=== PATIENT | male | born 1980 | race American Indian/Alaskan Native ===

== ENCOUNTER 2017-10-21 22:27 | Emergency (ER) | payer MEDICAID ==
[2017-10-22] MEDS ORDERED: Sodium Chloride 0.9% 1,000 ML IV ONE (00:12)
--- NOTE | 2017-10-22 00:29 | EDM.PDOC ---
ED HPI GENERAL MEDICAL PROBLEM - General Chief Complaint: Gastrointestinal Problem Stated Complaint: HEADACHE AND STOMACH PAIN [id number] Time Seen by Provider: 10/22/17 00:25 Source of Information: Reports: Patient History Limitations: Reports: No Limitations - History of Present Illness INITIAL COMMENTS - FREE TEXT/NARRATIVE: onset diarrhoea and headache today. did eat sandwich earlier but only a small bit. no N/V. Treatments CORPORATE ASSOCIATE: Reports: NSAIDS Frontal Headache Pain Score (Numeric/FACES): 6 - Related Data Allergies Allergy/AdvReac Type Severity Reaction Status Date / Time No Known Allergies Allergy Verified 10/22/17 00:09 Home Meds: Home Meds . [No Known Home Meds] 11/01/13 [History] Past Medical History - Past Health History Medical/Surgical History: Denies Medical/Surgical History - Past Surgical History Other Musculoskeletal Surgeries/Procedures:: right forearm plate inserted 2013 Social & Family History - Tobacco Use Smoking Status *Q: Never Smoker Second Hand Smoke Exposure: No - Caffeine Use Caffeine Use: Reports: Coffee, Energy Drinks, Soda, Tea - Recreational Drug Use Recreational Drug Use: Yes Recreational Drug Type: Reports: Marijuana/Hashish Recreational Drug Use Frequency: Weekly ED ROS GENERAL - Review of Systems Review Of Systems: ROS reveals no pertinent complaints other than HPI. ED EXAM, GI/ABD - Physical Exam Exam: See Below Exam Limited By: No Limitations General Appearance: Alert, WD/WN, Mild Distress, Other (discomfort) Eyes: Bilateral: Normal Appearance (pupils ER @ 4mm) Ears: Hearing Grossly Normal Throat/Mouth: Normal Voice, No Airway Compromise Head: Atraumatic Neck: Non-Tender, Full Range of Motion Respiratory/Chest: No Respiratory Distress Cardiovascular: Regular Rate, Rhythm GI/Abdominal Exam: Soft, Non-Tender, Other (BS hyper). No: Distended, Guarding , Rigid, Rebound Neurological: Alert, Oriented, Normal Cognition, Normal Gait, No Motor/Sensory Deficits Psychiatric: Normal Affect, Normal Mood Skin Exam: Warm, Dry, Normal Color Lymphatic: No Adenopathy Course - Vital Signs Last Recorded V/S: Last Vital Signs Temp 36.8 C 10/21/17 23:59 Pulse 102 H 10/21/17 23:59 Resp 18 10/21/17 23:59 BP 123/98 H 10/21/17 23:59 Pulse Ox 99 10/21/17 23:59 - Orders/Labs/Meds Labs: Laboratory Tests 10/22/17 10/22/17 10/22/17 Range/Units 00:20 00:20 00:20 WBC 6.4 (5.0-10.0) 10^3/uL RBC 5.19 (4.6-6.2) 10^6/uL Hgb 15.9 (14.0-18.0) g/dL Hct 46.6 (40.0-54.0) % MCV 89.8 (80-100) fL MCH 30.6 (27.0-34.0) pg MCHC 34.1 (33.0-35.0) g/dL Plt Count 166 (150-450) 10^3/uL Neut % (Auto) 67.4 (42.2-75.2) % Lymph % (Auto) 18.6 L (20.5-50.1) % Martin % (Auto) 11.3 H (2-8) % Eos % (Auto) 2.5 (1.0-3.0) % Baso % (Auto) 0.2 (0.0-1.0) % Sodium 138 (135-145) mmol/L Potassium 3.7 (3.6-5.0) mmol/L Chloride 104 (101-111) mmol/L Carbon Dioxide 26.0 (21.0-31.0) mmol/L Anion Gap 11.7 BUN 13 (7-18) mg/dL Creatinine 0.9 (0.6-1.3) mg/dL Est Cr Clr Drug Dosing 118.53 mL/min Estimated GFR (MDRD) > 60 BUN/Creatinine Ratio 14.44 Glucose 115 H (74-105) mg/dL Lactic Acid 0.7 (0.5-2.2) mmol/L Calcium 8.9 (8.4-10.2) mg/dl Total Bilirubin 0.4 (0.2-1.0) mg/dL AST 36 (10-42) IU/L ALT 43 (10-60) IU/L Alkaline Phosphatase 75 (42-121) IU/L Total Protein 7.8 (6.7-8.2) g/dl Albumin 4.0 (3.2-5.5) g/dl Globulin 3.8 Albumin/Globulin Ratio 1.05 Meds: Medications Discontinued Medications Generic Name Dose Route Start Last Admin Trade Name Deon PRN Reason Stop Dose Admin Sodium Chloride 1,000 mls @ 999 mls/hr 10/22/17 00:12 10/22/17 00:35 Normal Saline IV 10/22/17 01:12 999 mls/hr .BOLUS ONE Administration Ketorolac Tromethamine 15 mg 10/22/17 00:53 10/22/17 01:13 Toradol IVPUSH 10/22/17 00:54 15 mg ONETIME ONE Administration Loperamide HCl 2 mg 10/22/17 00:53 10/22/17 01:13 Imodium PO 10/22/17 00:54 2 mg ONETIME ONE Administration - Re-Assessments/Exams Free Text/Narrative Re-Assessment/Exam: 10/22/17 00:54 results discussed with pt who is feeling better s/p Iv fluids Departure - Departure Time of Disposition: 01:21 Disposition: Home, Self-Care 01 Condition: Good Clinical Impression: Gastroenteritis, Diarrhea - Discharge Information Instructions: Diarrhea, Adult, [id number] Forms: ED Department Discharge Additional Instructions: 1) avoid solid foods next 4 days 2) have popsicle, jello, broth 3) follow up at clinic rx given; imodium
[2017-10-22 00:45] LABS: CHLORIDE,CL 104 mmol/L (101-111); SODIUM,NA 138 mmol/L (135-145)
[2017-10-22] MEDS ORDERED: Loperamide 2 MG Cap PO ONE (00:53)
[2017-10-22] MEDS ORDERED: Ketorolac 30 MG/ML SDV IVPUSH ONE (00:53)
== END 2017-10-22 01:41 | disposition home or self-care (01) ==
LOC: DL.ED 22:27
DX: K52.9 Noninfective gastroenteritis and colitis, unspecified (principal)
CPT/HCPCS: 36415; 80053; 83605; 85025; 96361; 96374; 99284; A9270; J1885; J7030; 99283

== ENCOUNTER 2018-06-07 18:36 | Emergency (ER) | payer OTHER, MEDICAID ==
--- NOTE | 2018-06-07 19:51 | EDM.PDOC ---
ED HPI GENERAL MEDICAL PROBLEM - General Chief Complaint: Upper Extremity Injury/Pain Stated Complaint: CONSTANT PAIN IN ARM [id number] Time Seen by Provider: 06/07/18 19:30 Source of Information: Reports: Patient History Limitations: Reports: No Limitations - History of Present Illness INITIAL COMMENTS - FREE TEXT/NARRATIVE: c/o pain right forearm past 2 days in area of previous remote fracture with plate fixation. Denies injury, aches more when out in cold, Having hard time sleeping. Denies any injury or fall. No numbness or tingling. No redness or swelling Right Arm Pain Score (Numeric/FACES): 7 - Related Data Allergies Allergy/AdvReac Type Severity Reaction Status Date / Time No Known Allergies Allergy Verified 06/07/18 18:40 Home Meds: Home Meds . [No Known Home Meds] 11/01/13 [History] Past Medical History - Past Health History Medical/Surgical History: Denies Medical/Surgical History - Infectious Disease History Infectious Disease History: Reports: Chicken Pox - Past Surgical History Other Musculoskeletal Surgeries/Procedures:: right forearm plate inserted 2013 Social & Family History - Family History Family Medical History: Noncontributory - Tobacco Use Smoking Status *Q: Never Smoker - Caffeine Use Caffeine Use: Reports: Soda - Recreational Drug Use Recreational Drug Use: Yes Drug Use in Last 12 Months: Yes Recreational Drug Type: Reports: Marijuana/Hashish Recreational Drug Use Frequency: Socially Review of Systems - Review of Systems Review Of Systems: ROS reveals no pertinent complaints other than HPI. ED EXAM, GENERAL - Physical Exam Exam: See Below Exam Limited By: No Limitations General Appearance: Alert, No Apparent Distress Eye Exam: Bilateral Eye: EOMI Ears: Normal External Exam Nose: Normal Inspection Throat/Mouth: Normal Inspection Head: Atraumatic Neck: Full Range of Motion Respiratory/Chest: No Respiratory Distress, Lungs Clear Cardiovascular: Normal Peripheral Pulses, Regular Rate, Rhythm Back Exam: Full Range of Motion Extremities: Normal Range of Motion, Arm Pain (right mid forearm, well healed surgical scar mid posterior fore arm). No: Slow Capillary Refill, Joint Swelling, Increased Warmth, Mottled, Pallor, Redness Neurological: Alert, Oriented Psychiatric: Normal Affect, Normal Mood Skin Exam: Warm, Dry, Intact Course - Vital Signs Last Recorded V/S: Last Vital Signs Temp 97.5 F 06/07/18 18:41 Pulse 85 06/07/18 18:41 Resp 16 06/07/18 18:41 BP 133/85 06/07/18 18:41 Pulse Ox 100 06/07/18 18:41 - Orders/Labs/Meds Meds: Medications Discontinued Medications Generic Name Dose Route Start Last Admin Trade Name Deon PRN Reason Stop Dose Admin Ibuprofen 600 mg 06/07/18 19:45 06/07/18 19:55 Motrin PO 06/07/18 19:46 600 mg ONETIME ONE Administration Departure - Departure Time of Disposition: 19:46 Disposition: Home, Self-Care 01 Condition: Good Clinical Impression: Arm pain, right, History of open reduction and internal fixation (ORIF) procedure - Discharge Information *PRESCRIPTION DRUG MONITORING PROGRAM REVIEWED*: Yes *COPY OF PRESCRIPTION DRUG MONITORING REPORT IN PATIENT WILTON: No Instructions: Heat Therapy, [id number] Forms: ED Department Discharge Additional Instructions: alternate tylenol 650mg with ibuprofen 600mg every 4 hours as needed for discomfort keep extremity warm warm pack or warm towel from dryer on extremity at night follow in clinic with primary care if continued discomfort
[2018-06-07] MEDS: Ibuprofen 600 MG Tab PO ONE (19:55)
== END 2018-06-07 19:56 | disposition home or self-care (01) ==
LOC: DL.ED 18:36
DX: M79.601 Pain in right arm (principal); Z87.81 Personal history of (healed) traumatic fracture
CPT/HCPCS: 99282; A9270

== ENCOUNTER 2018-06-17 03:16 | Emergency (ER) | payer OTHER, MEDICAID ==
[2018-06-17] MEDS ORDERED: Ketorolac 30 MG/ML SDV IVPUSH ONE (03:23)
--- NOTE | 2018-06-17 03:30 | EDM.PDOC ---
ED HPI GENERAL MEDICAL PROBLEM - General Stated Complaint: CHEST PAIN Time Seen by Provider: 06/17/18 03:25 Source of Information: Reports: Patient History Limitations: Reports: No Limitations - History of Present Illness INITIAL COMMENTS - FREE TEXT/NARRATIVE: ED ambulatory with c/o severe pain between shoulder blades with sudden onset waking from sleep 1/2 hour ago. No nausea or vomiting no radiation pain, increase with movement. Worse with neck flexion or stretching No anterior chest pain, Denies abdominal pain. Increased weights when lifting today, Denies hx ETOH. No tobacco use, daily Cannibis use Middle Back Pain Score (Numeric/FACES): 10 - Related Data Allergies Allergy/AdvReac Type Severity Reaction Status Date / Time No Known Allergies Allergy Verified 06/07/18 18:40 Home Meds: Home Meds . [No Known Home Meds] 11/01/13 [History] Past Medical History - Past Health History Medical/Surgical History: Denies Medical/Surgical History - Infectious Disease History Infectious Disease History: Reports: Chicken Pox - Past Surgical History Other Musculoskeletal Surgeries/Procedures:: right forearm plate inserted 2013 Social & Family History - Family History Family Medical History: Noncontributory - Caffeine Use Caffeine Use: Reports: Soda ED ROS GENERAL - Review of Systems Review Of Systems: ROS reveals no pertinent complaints other than HPI. ED EXAM, GENERAL - Physical Exam Exam: See Below Exam Limited By: No Limitations General Appearance: Alert, Moderate Distress Eye Exam: Bilateral Eye: EOMI Ears: Normal External Exam Nose: Normal Inspection Throat/Mouth: Normal Inspection Head: Atraumatic, Normocephalic Neck: Tender Lateral (with flexion) Respiratory/Chest: No Respiratory Distress, Lungs Clear, Normal Breath Sounds Cardiovascular: Normal Peripheral Pulses, Regular Rate, Rhythm GI/Abdominal: Normal Bowel Sounds, Soft, Non-Tender. No: Distended, Guarding Back Exam: Muscle Spasm (mid thoracic), Paraspinal Tenderness Extremities: Normal Inspection, Normal Range of Motion Neurological: Alert, Oriented, Normal Cognition Psychiatric: Anxious Skin Exam: Warm, Dry, Intact, Normal Color Course - Vital Signs Last Recorded V/S: Last Vital Signs Temp 97.3 F 06/17/18 03:22 Pulse 68 06/17/18 03:22 Resp 18 06/17/18 03:22 BP 161/98 H 06/17/18 03:22 Pulse Ox 100 06/17/18 03:22 - Orders/Labs/Meds Labs: Laboratory Tests 06/17/18 06/17/18 06/17/18 Range/Units 03:25 03:25 03:25 WBC 8.8 (5.0-10.0) 10^3/uL RBC 4.74 (4.6-6.2) 10^6/uL Hgb 14.5 (14.0-18.0) g/dL Hct 43.3 (40.0-54.0) % MCV 91.4 (80-100) fL MCH 30.6 (27.0-34.0) pg MCHC 33.5 (33.0-35.0) g/dL Plt Count 229 (150-450) 10^3/uL Neut % (Auto) 43.8 (42.2-75.2) % Lymph % (Auto) 43.7 (20.5-50.1) % [place] % (Auto) 7.8 (2-8) % Eos % (Auto) 4.4 H (1.0-3.0) % Baso % (Auto) 0.3 (0.0-1.0) % D-Dimer, Quantitative 119 (0-400) ng/mL Sodium 139 (135-145) mmol/L Potassium 3.4 L (3.6-5.0) mmol/L Chloride 102 (101-111) mmol/L Carbon Dioxide 26.0 (21.0-31.0) mmol/L Anion Gap 14.4 BUN 17 (7-18) mg/dL Creatinine 1.0 (0.6-1.3) mg/dL Est Cr Clr Drug Dosing TNP Estimated GFR (MDRD) > 60 BUN/Creatinine Ratio 17.00 Glucose 109 H (74-105) mg/dL Calcium 9.1 (8.4-10.2) mg/dl Total Bilirubin 0.7 (0.2-1.0) mg/dL AST 26 (10-42) IU/L ALT 25 (10-60) IU/L Alkaline Phosphatase 67 (42-121) IU/L Total Protein 7.5 (6.7-8.2) g/dl Albumin 3.9 (3.2-5.5) g/dl Globulin 3.6 Albumin/Globulin Ratio 1.08 Amylase 71 (28-100) U/L Lipase 41 (22-51) U/L Meds: Medications Discontinued Medications Generic Name Dose Route Start Last Admin Trade Name Deon PRN Reason Stop Dose Admin Hydromorphone HCl 1 mg 06/17/18 04:01 06/17/18 04:09 Dilaudid IVPUSH 06/17/18 04:02 1 mg ONETIME ONE Administration Ketorolac Tromethamine 30 mg 06/17/18 03:23 06/17/18 03:33 Toradol IVPUSH 06/17/18 03:24 30 mg ONETIME ONE Administration Orphenadrine Citrate 60 mg 06/17/18 03:24 06/17/18 03:34 Norflex IM 06/17/18 03:25 60 mg ONETIME ONE Administration - Re-Assessments/Exams Free Text/Narrative Re-Assessment/Exam: 06/17/18 05:14 Pain improving, able to localize to musle groupings used with his lifting. Less anxious. Departure - Departure Time of Disposition: 04:43 Disposition: Home, Self-Care 01 Condition: Good Clinical Impression: Muscle spasm - Discharge Information *PRESCRIPTION DRUG MONITORING PROGRAM REVIEWED*: No *COPY OF PRESCRIPTION DRUG MONITORING REPORT IN PATIENT WILTON: No Instructions: Muscle Cramps and Spasms, [id number] Forms: ED Department Discharge Additional Instructions: warm pack to area limit weight lifting for one week Ibuprofen 600mg every 6 hours as needed for discomfort #20 take with food flexeril 10mg one every 8 hours as needed for spasm #10 Clinic follow up tuesday if not improving
[2018-06-17 03:52] LABS: ANION GAP 14.4; CHLORIDE,CL 102 mmol/L (101-111); SODIUM,NA 139 mmol/L (135-145)
[2018-06-17] MEDS ORDERED: HYDROmorphone 1 MG/ML Syringe IVPUSH ONE (04:01)
== END 2018-06-17 05:00 | disposition home or self-care (01) ==
LOC: DL.ED 03:16
DX: M62.830 Muscle spasm of back (principal)
CPT/HCPCS: 36415; 80053; 82150; 83690; 85025; 85379; 96372; 96374; 96375; 99283; J1170; J1885; J2360

== ENCOUNTER 2019-06-02 14:23 | Emergency (ER) | payer MEDICAID ==
[2019-06-02] MEDS ORDERED: Aspirin 81 MG Tab.Chew PO ONE (14:46)
[2019-06-02 15:01] LABS: ANION GAP 12.8; CHLORIDE,CL 104 mmol/L (101-111); SODIUM,NA 139 mmol/L (135-145)
--- NOTE | 2019-06-02 15:16 | EDM.PDOC ---
ED HPI GENERAL MEDICAL PROBLEM - General Chief Complaint: Chest Pain Stated Complaint: ARM PAIN Time Seen by Provider: 06/02/19 14:50 Source of Information: Reports: Patient, RN History Limitations: Reports: No Limitations - History of Present Illness INITIAL COMMENTS - FREE TEXT/NARRATIVE: 38 year old male who presents to the ER with left arm/chest pain x 1 and half day. Reports he cannot rate nor described th pain. States he has been having chest pain with numbness and tingling in to his left arm daily and it will resolved on its own. He denies any trauma, injury or fall. He has not tried anything for his pain. He reports chest pain with taking deep depths. He admits he has had this before but it resolved on its own. Denies any history of a heart attack. - Related Data Allergies Allergy/AdvReac Type Severity Reaction Status Date / Time No Known Allergies Allergy Verified 06/02/19 14:27 Home Meds: Home Meds Cyclobenzaprine [Flexeril] 10 mg PO BID 03/10/19 [History] Past Medical History - Past Health History Medical/Surgical History: Denies Medical/Surgical History - Infectious Disease History Infectious Disease History: Reports: Chicken Pox - Past Surgical History Other Musculoskeletal Surgeries/Procedures:: right forearm plate inserted 2013 Social & Family History - Family History Family Medical History: Noncontributory - Tobacco Use Smoking Status *Q: Never Smoker - Caffeine Use Caffeine Use: Reports: Coffee, Energy Drinks - Recreational Drug Use Recreational Drug Use: Yes Drug Use in Last 12 Months: Yes Recreational Drug Type: Reports: Marijuana/Hashish Recreational Drug Use Frequency: Daily ED ROS GENERAL - Review of Systems Review Of Systems: Comprehensive ROS is negative, except as noted in HPI. ED EXAM, GENERAL - Physical Exam Exam: See Below Exam Limited By: No Limitations General Appearance: Alert, Anxious, Mild Distress Ears: Normal External Exam, Normal Canal, Hearing Grossly Normal, Normal TMs Nose: Normal Inspection, Normal Mucosa, No Blood Throat/Mouth: Normal Inspection, Normal Lips, Normal Teeth, Normal Gums, Normal Oropharynx, Normal Voice, No Airway Compromise Head: Normocephalic Neck: Normal Inspection, Supple, Non-Tender, Full Range of Motion Respiratory/Chest: No Respiratory Distress, Lungs Clear, Normal Breath Sounds, No Accessory Muscle Use, Chest Non-Tender Cardiovascular: Normal Peripheral Pulses, Regular Rate, Rhythm, No Edema, No Gallop, No JVD, No Murmur, No Rub Peripheral Pulses: 3+: Posterior Tibial (L), Posterior Tibial (R), Dorsalis Pedis (L), Dorsalis Pedis (R) GI/Abdominal: Normal Bowel Sounds, Soft, Non-Tender, No Organomegaly, No Distention, No Abnormal Bruit, No Mass Extremities: Normal Inspection, Normal Range of Motion, Non-Tender, Normal Capillary Refill, No Pedal Edema Neurological: Alert, Oriented Psychiatric: Normal Affect, Normal Mood Skin Exam: Warm Lymphatic: No Adenopathy Course - Vital Signs Text/Narrative:: Review EKG and lab results with patient and significant other. Encouraged to follow up with PCP in the clinic for chronic Right AC separation. Last Recorded V/S: Last Vital Signs Temp 97.5 F 06/02/19 14:43 Pulse 73 06/02/19 14:43 Resp 17 06/02/19 14:43 BP 150/101 H 06/02/19 14:43 Pulse Ox 98 06/02/19 14:43 - Orders/Labs/Meds Orders: Active Orders 24 hr Category Date Time Status EKG Documentation Completion [RC] URGENT Care 06/02/19 14:40 Active DD [D-DIMER QUANTITATIVE] [COAG] Stat Lab 06/02/19 14:46 Ordered Labs: Laboratory Tests 06/02/19 06/02/19 Range/Units 14:36 14:36 WBC 7.4 (5.0-10.0) 10^3/uL RBC 4.85 (4.6-6.2) 10^6/uL Hgb 14.4 (14.0-18.0) g/dL Hct 43.1 (40.0-54.0) % MCV 88.9 (80-100) fL MCH 29.7 (27.0-34.0) pg MCHC 33.4 (33.0-35.0) g/dL Plt Count 251 (150-450) 10^3/uL Neut % (Auto) 58.6 (42.2-75.2) % Lymph % (Auto) 30.7 (20.5-50.1) % [place] % (Auto) 8.1 H (2-8) % Eos % (Auto) 2.2 (1.0-3.0) % Baso % (Auto) 0.4 (0.0-1.0) % Sodium 139 (135-145) mmol/L Potassium 3.8 (3.6-5.0) mmol/L Chloride 104 (101-111) mmol/L Carbon Dioxide 26.0 (21.0-31.0) mmol/L Anion Gap 12.8 BUN 12 (7-18) mg/dL Creatinine 0.9 (0.6-1.3) mg/dL Est Cr Clr Drug Dosing 117.37 mL/min Estimated GFR (MDRD) > 60 BUN/Creatinine Ratio 13.33 Glucose 104 (74-105) mg/dL Calcium 9.0 (8.4-10.2) mg/dl Total Bilirubin 0.4 (0.2-1.0) mg/dL AST 25 (10-42) IU/L ALT 35 (10-60) IU/L Alkaline Phosphatase 74 (42-121) IU/L Troponin I < 0.02 (0.00-0.02) ng/ml Total Protein 7.8 (6.7-8.2) g/dl Albumin 4.2 (3.2-5.5) g/dl Globulin 3.6 Albumin/Globulin Ratio 1.17 Meds: Medications Discontinued Medications Generic Name Dose Route Start Last Admin Trade Name Freq PRN Reason Stop Dose Admin Aspirin 324 mg 06/02/19 14:46 06/02/19 15:00 Aspirin PO 06/02/19 14:47 324 mg ONETIME ONE Administration - Radiology Interpretation Free Text/Narrative:: PROCEDURE INFORMATION: Exam: XR Chest, 2 Views Exam date and time: 06/02/2019 2:40 PM Age: 38 years old Clinical indication: Chest pain and pleuordynia; On breathing; Additional info: Chest pain worse with deep breath TECHNIQUE: Imaging protocol: XR of the chest Views: 2 views. COMPARISON: CR CHEST 1 VIEW 04/08/2010 7:07 PM FINDINGS: Lungs: Aeration and architecture is normal Pleural space: The pleural surfaces are normal. There are no signs of effusion or pneumothorax. Heart/Mediastinum: The heart and mediastinum appear normal.. 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 IMPRESSION: Normal, no change. - Re-Assessments/Exams Free Text/Narrative Re-Assessment/Exam: Review lab and EKG results with patient and significant other. Encouraged patient to follow-up in the clinic with PCP for right chronic AC separation. The patient and significant other verbalize understanding. Departure - Departure Time of Disposition: 15:20 Disposition: Home, Self-Care 01 Condition: Fair Clinical Impression: Chest pain Qualifiers: Chest pain type: unspecified Qualified Code(s): R07.9 - Chest pain, unspecified Acromioclavicular joint separation Qualifiers: Encounter type: sequela Laterality: right Qualified Code(s): S43.101S - Unspecified dislocation of right acromioclavicular joint, sequela Instructions: Nonspecific Chest Pain Additional Instructions: Follow up with PCP in the clinic in two days. More instructions included in the AVS. Sepsis Event Note - Evaluation Sepsis Screening Result: No Definite Risk - Focused Exam Vital Signs: Vital Signs Temp Pulse Resp BP Pulse Ox 06/02/19 14:43 97.5 F 73 17 150/101 H 98 Date Exam was Performed: 06/02/19 Time Exam was Performed: 15:11 - My Orders Last 24 Hours: My Active Orders 06/02/19 14:40 EKG Documentation Completion [RC] URGENT 06/02/19 14:46 DD [D-DIMER QUANTITATIVE] [COAG] Stat - Assessment/Plan Last 24 Hours: My Active Orders 06/02/19 14:40 EKG Documentation Completion [RC] URGENT 06/02/19 14:46 DD [D-DIMER QUANTITATIVE] [COAG] Stat
== END 2019-06-02 15:42 | disposition home or self-care (01) ==
LOC: DL.ED 14:23
DX: R07.9 Chest pain, unspecified (principal); S43.101S Unspecified dislocation of right acromioclavicular joint, sequela
CPT/HCPCS: 36415; 71046; 80053; 84484; 85025; 85379; 93005; 99285; A9270

== ENCOUNTER 2019-09-09 21:19 | Emergency (ER) | payer SELFPAY ==
[2019-09-09] MEDS ORDERED: Morphine 2 MG/ML Syringe IVPUSH ONE (21:26)
[2019-09-09] MEDS ORDERED: Sodium Chloride 0.9% 1,000 ML IV ONE ×2 (21:28→22:40)
[2019-09-09] MEDS ORDERED: Sodium Chloride 0.9% 10 ML Syringe FLUSH PRN (21:28)
[2019-09-09] MEDS ORDERED: Midazolam 1 MG/ML 2 ML SDV IVPUSH ONE (21:44)
[2019-09-09 21:53] LABS: ANION GAP 17.7 mEq/L (7-13); CHLORIDE,CL 102 mmol/L (98-107); SODIUM,NA 139 mmol/L (136-145)
[2019-09-09] MEDS ORDERED: fentaNYL 100 MCG/2 ML SDV IVPUSH ONE ×2 (22:13→22:40)
[2019-09-09] MEDS ORDERED: Silver Sulfadiazine 1% Crm 50 GM Tube TOP ONE (22:24)
[2019-09-09] MEDS ORDERED: Bacitracin Oint 1 GM U/D Packet TOP ONE (22:25)
[2019-09-09] MEDS ORDERED: Lactated Ringers 1,000 ML IV ONE (22:40)
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
== END 2019-09-09 23:45 ==
LOC: DL.ED 21:19
DX: T20.04XA Burn of unspecified degree of nose (septum), initial encounter (principal); T20.02XA Burn of unspecified degree of lip(s), initial encounter; T23.071A Burn of unspecified degree of right wrist, initial encounter; T22.011A Burn of unspecified degree of right forearm, initial encounter; Z79.899 Other long term (current) drug therapy; X08.8XXA Exposure to other specified smoke, fire and flames, initial encounter
CPT/HCPCS: 16020; 36415; 80053; 85025; 96374; 96375; 99285; A9270; J2250; J2270; J3010; J7030; J7120; 99284

== ENCOUNTER 2020-05-13 08:38 | Emergency (ER) | payer MEDICAID ==
[2020-05-13] MEDS ORDERED: Clindamycin HCl 150 MG Cap PO ONE (08:56)
[2020-05-13] MEDS ORDERED: Lidocaine 2% Viscous Solution 15 ML Cup PO ONE (08:57)
[2020-05-13] MEDS ORDERED: Acetaminophen/HYDROcodone 325-10 MG Tab PO ONE (08:57)
--- NOTE | 2020-05-13 09:07 | EDM.PDOC ---
ED HPI GENERAL MEDICAL PROBLEM - General Chief Complaint: ENT Problem Stated Complaint: LEFT SIDE DRY SOCKET SWOLLEN CHEEK Time Seen by Provider: 05/13/20 08:50 Source of Information: Reports: Patient History Limitations: Reports: No Limitations - History of Present Illness INITIAL COMMENTS - FREE TEXT/NARRATIVE: Pt was putting a bridal on a horse four days ago and got hit on left side of face. Horse knocked pt's left upper incisor tooth out. Now has pain and swelling to left side of face. Patient states was at [facility] dental clinic at 0730HRS today and could not be seen. Onset: Sudden Duration: Constant Location: Reports: Other (mouth) Quality: Reports: Ache Severity: Moderate Improves with: Reports: None Worsens with: Reports: None Associated Symptoms: Reports: No Other Symptoms Left Face/Facial Pain Score (Numeric/FACES): 8 - Related Data Allergies Allergy/AdvReac Type Severity Reaction Status Date / Time No Known Allergies Allergy Verified 05/13/20 08:47 Home Meds: Home Meds Gabapentin [Neurontin] 300 mg PO DAILY 05/13/20 [History] Past Medical History - Past Health History Medical/Surgical History: Denies Medical/Surgical History Dermatologic History: Reports: Other (See Below) Other Dermatologic History: HX clark - Infectious Disease History Infectious Disease History: Reports: Chicken Pox - Past Surgical History Other Musculoskeletal Surgeries/Procedures:: right forearm plate inserted 2013 Social & Family History - Family History Family Medical History: No Pertinent Family History - Tobacco Use Tobacco Use Status *Q: Never Tobacco User - Caffeine Use Caffeine Use: Reports: Coffee - Recreational Drug Use Recreational Drug Use: No - Living Situation & Occupation Living situation: Reports: with Family ED ROS ENT - Review of Systems Review Of Systems: Comprehensive ROS is negative, except as noted in HPI. ED EXAM, ENT - Physical Exam Exam: See Below Exam Limited By: No Limitations General Appearance: Alert, WD/WN, No Apparent Distress Eye Exam: Bilateral Eye: Normal Inspection Nose: Normal Inspection Mouth/Throat: Normal Oropharynx, Dental Abcess (Left maxillary incisor fracture with swelling and small amt of drainage), Dental Pain, Lip Swelling (left upper) Head: Normocephalic Neck: Normal Inspection, Non-Tender, Full Range of Motion. No: Lymphadenopathy (L), Lymphadenopathy (R) Respiratory/Chest: No Respiratory Distress Neurological: Alert, Oriented, No Motor/Sensory Deficits Psychiatric: Normal Mood Skin: Warm, Dry, Intact, Normal Color, No Rash Course - Vital Signs Last Recorded V/S: Last Vital Signs Temp 99.1 F 05/13/20 08:44 Pulse 119 H 05/13/20 08:44 Resp 18 05/13/20 08:44 BP 167/97 H 05/13/20 08:44 Pulse Ox 96 05/13/20 08:44 - Orders/Labs/Meds Meds: Medications Discontinued Medications Generic Name Dose Route Start Last Admin Trade Name Deon PRN Reason Stop Dose Admin Hydrocodone Bitart/Acetaminophen 1 tab 05/13/20 08:57 05/13/20 09:04 Holcomb 325-10 Mg PO 05/13/20 08:58 1 tab ONETIME ONE Administration Clindamycin HCl 300 mg 05/13/20 08:56 05/13/20 09:04 Cleocin PO 05/13/20 08:57 300 mg ONETIME ONE Administration Lidocaine HCl 15 ml 05/13/20 08:57 05/13/20 09:05 Xylocaine 2% Viscous PO 05/13/20 08:58 15 ml ONETIME ONE Administration Departure - Departure Time of Disposition: 09:04 Disposition: Home, Self-Care 01 Condition: Good Clinical Impression: Dental abscess Fractured tooth due to trauma without complication Qualifiers: Encounter type: initial encounter Fracture type: closed Qualified Code(s): S02.5XXA - Fracture of tooth (traumatic), initial encounter for closed fracture - Discharge Information *PRESCRIPTION DRUG MONITORING PROGRAM REVIEWED*: Not Applicable *COPY OF PRESCRIPTION DRUG MONITORING REPORT IN PATIENT [place]ILTON: Not Applicable Instructions: Dental Abscess, [id number], Tooth Injuries, [id number] Forms: ED Department Discharge Additional Instructions: Rx: Clindamycin 300mg Rx: Hydrocodone 5mg/325mg Rx: Viscous Lidocaine 2% Follow up with dentist tomorrow. Sepsis Event Note (ED) - Evaluation Sepsis Screening Result: No Definite Risk - Focused Exam Vital Signs: Vital Signs Temp Pulse Resp BP Pulse Ox 05/13/20 08:44 99.1 F 119 H 18 167/97 H 96
== END 2020-05-13 09:14 | disposition home or self-care (01) ==
LOC: DL.ED 08:38
DX: S02.5XXA Fracture of tooth (traumatic), initial encounter for closed fracture (principal); K04.7 Periapical abscess without sinus; W22.8XXA Striking against or struck by other objects, initial encounter
CPT/HCPCS: 99283; A9270-GY

== ENCOUNTER 2021-10-28 22:22 | Emergency (ER) | payer MEDICAID ==
[2021-10-28] MEDS ORDERED: Sodium Chloride 0.9% 1,000 ML IV ONE (22:30)
[2021-10-28 23:01] LABS: AMPHETAMINES,URINE NEGATIVE (NEGATIVE); BARBITURATES,URINE NEGATIVE (NEGATIVE); BENZODIAZEPINE,URINE NEGATIVE (NEGATIVE); MDMA (ECSTASY), URINE NEGATIVE (NEGATIVE); METHADONE,URINE NEGATIVE (NEGATIVE); METHAMPHETAMINES,URINE NEGATIVE (NEGATIVE); OPIATES,URINE NEGATIVE (NEGATIVE); OXYCODONE,URINE NEGATIVE (NEGATIVE); PHENCYCLIDINE,URINE NEGATIVE (NEGATIVE); TCA,URINE NEGATIVE (NEGATIVE)
[2021-10-28] MEDS ORDERED: Ondansetron 4 MG/2 ML SDV IVPUSH ONE (23:05)
[2021-10-28 23:11] LABS: ANION GAP 15.5 mEq/L (7-13); CHLORIDE,CL 106 mmol/L (98-107); SODIUM,NA 140 mmol/L (136-145)
[2021-10-28 23:15] LABS: ESTIMATED GFR 94 mL/min (>=60)
== END 2021-10-29 04:55 | disposition home or self-care (01) ==
LOC: DL.ED 22:22
DX: F10.129 Alcohol abuse with intoxication, unspecified (principal); Y90.8 Blood alcohol level of 240 mg/100 ml or more
CPT/HCPCS: 36415; 71045; 80053; 80305; 80307; 83735; 85025; 96361; 96374; 99284; J2405; J7030; 99283

== ENCOUNTER 2024-02-29 19:32 | Emergency (ER) | payer MEDICAID ==
[2024-02-29] MEDS: Lidocaine 2% with EPINEPHrine 1:200,000 20 ML SDV INJECT ONE (20:01)
[2024-02-29] MEDS: Amoxicillin/Clavulanate K 875-125 MG Tab PO ONE (20:41)
[2024-02-29] MEDS: Bacitracin Oint 1 GM U/D Packet TOP ONE (20:41)
== END 2024-02-29 20:44 | disposition home or self-care (01) ==
LOC: DL.ED 19:32
DX: S91.311A Laceration without foreign body, right foot, initial encounter (principal); W54.0XXA Bitten by dog, initial encounter
CPT/HCPCS: 99283; A9270; J3490

== ENCOUNTER 2025-03-03 17:34 | Emergency (ER) | payer SELFPAY ==
[2025-03-03 17:51] LABS: BASOPHILS PERCENT AUTO 0.4 % (0.0-1.0); EOSINOPHILS PERCENT AUTO 2.7 % (1.0-3.0); LYMPHOCYTES PERCENT AUTO 32.8 % (20.5-50.1); MONOCYTES PERCENT AUTO 9.5 % (2-8); NEUTROPHILS PERCENT AUTO 54.6 % (42.2-75.2); PLATELET COUNT,PLT 290 10^3/uL (150-450); RED BLOOD CELL COUNT 4.75 10^6/uL (4.6-6.2); WHITE BLOOD CELL COUNT,WBC 7.4 10^3/uL (5.0-10.0)
[2025-03-03 18:09] LABS: A/G RATIO 0.9; ALANINE AMINOTRANSFERASE,ALT 37 U/L (16-63); ASPARTATE AMNIOTRANSFERASE,AST 21 U/L (15-37); BILIRUBIN TOTAL 0.3 mg/dL (0.2-1.0); BLOOD UREA NITROGEN,BUN 15 mg/dL (7-18); CARBON DIOXIDE,CO2 28 mmol/L (21-32); CHLORIDE,CL 103 mmol/L (98-107); CREATININE 1.04 mg/dL (0.70-1.30); ESTIMATED GFR 90 mL/min (>=60); GLUCOSE RANDOM 112 mg/dL (70-99); POTASSIUM,K 4.0 mmol/L (3.5-5.1); PROTEIN TOTAL,TP 7.6 g/dL (6.4-8.2); SODIUM,NA 140 mmol/L (136-145)
== END 2025-03-03 19:15 | disposition home or self-care (01) ==
LOC: DL.ED 17:34
DX: R07.9 Chest pain, unspecified (principal)
CPT/HCPCS: 36415; 71045; 80053; 84484; 85025; 93010; 99283; 99285; A9270